=== PATIENT | male | born 1945 | race Caucasian/White ===

== ENCOUNTER 2021-05-12 06:27 | Day surgery (SDC) | payer MEDICARE, BC ==
[~2021-05-12 06:27] MED LIST: Lactated Ringers 1,000 ML IV SCH; Sodium Chloride 0.9% 10 ML Syringe FLUSH PRN
[2021-05-12] MEDS ORDERED: Propofol 200 MG/20 ML SDV IV ONE (06:28)
[2021-05-12] MEDS ORDERED: Lidocaine 1% PF 2 ML SDV INJECT ONE (06:28)
== END 2021-05-12 08:42 | disposition home or self-care (01) ==
LOC: FB.SDS 06:27
PROVIDERS: ATTEND Surgery
DX: Z12.11 Encounter for screening for malignant neoplasm of colon (principal); K57.30 Diverticulosis of large intestine without perforation or abscess without bleeding; I25.10 Atherosclerotic heart disease of native coronary artery without angina pectoris; E78.00 Pure hypercholesterolemia, unspecified; I10 Essential (primary) hypertension; J44.9 Chronic obstructive pulmonary disease, unspecified; E66.9 Obesity, unspecified; K21.9 Gastro-esophageal reflux disease without esophagitis; E11.40 Type 2 diabetes mellitus with diabetic neuropathy, unspecified; Z88.8 Allergy status to other drugs, medicaments and biological substances; Z88.0 Allergy status to penicillin; Z79.82 Long term (current) use of aspirin; Z79.899 Other long term (current) drug therapy; Z79.84 Long term (current) use of oral hypoglycemic drugs; Z98.890 Other specified postprocedural states
CPT/HCPCS: 00812; 82947; G0121; J2704; J7120

== ENCOUNTER 2023-10-11 07:11 | Day surgery (SDC) | payer MEDICARE, BC ==
[2023-10-11] MEDS ORDERED: Propofol 200 MG/20 ML SDV IV ONE (07:12)
[2023-10-11] MEDS ORDERED: Lidocaine 2% 100 MG/5 ML Syringe IVPUSH ONE (07:12)
[2023-10-11] MEDS ORDERED: Sodium Chloride 0.9% 10 ML Syringe FLUSH PRN (07:15)
[2023-10-11] MEDS: Lactated Ringers 1,000 ML IV SCH (08:12)
[2023-10-11] MEDS: Simethicone Drops 40 MG/0.6 ML 30 ML Bottle ONE (09:59)
== END 2023-10-11 12:08 | disposition home or self-care (01) ==
LOC: FB.SDS 07:11
PROVIDERS: ATTEND Surgery
DX: K20.90 Esophagitis, unspecified without bleeding (principal); K29.80 Duodenitis without bleeding; K57.30 Diverticulosis of large intestine without perforation or abscess without bleeding; I86.4 Gastric varices; D50.9 Iron deficiency anemia, unspecified; J44.9 Chronic obstructive pulmonary disease, unspecified; E11.40 Type 2 diabetes mellitus with diabetic neuropathy, unspecified; I25.10 Atherosclerotic heart disease of native coronary artery without angina pectoris; I10 Essential (primary) hypertension; Z87.891 Personal history of nicotine dependence
CPT/HCPCS: 00813; 82947; 88305; 99100; A9270-GY; J2704; J7120